=== PATIENT | male | born 1980 | race Caucasian/White ===

== ENCOUNTER 2020-11-23 22:40 | Emergency (ER) | payer OTHER | END 2020-11-24 04:20 | disposition left against medical advice (07) | LOC: ER1 22:40 | DX: Z53.21 Procedure and treatment not carried out due to patient leaving prior to being seen by health care provider (principal) ==

== ENCOUNTER 2022-02-16 15:09 | Emergency (ER) | payer OTHER ==
[2022-02-16] MEDS ORDERED: IBUPROFEN800 MG PO (18:13)
== END 2022-02-16 18:56 | disposition home or self-care (01) ==
LOC: ER1 15:09
DX: S13.4XXA Sprain of ligaments of cervical spine, initial encounter (principal); S23.3XXA Sprain of ligaments of thoracic spine, initial encounter; M54.16 Radiculopathy, lumbar region; V49.50XA Passenger injured in collision with unspecified motor vehicles in traffic accident, initial encounter; Y92.410 Unspecified street and highway as the place of occurrence of the external cause
CPT/HCPCS: 70450; 72125; 72128; 72131; 99284

== ENCOUNTER 2022-03-01 16:31 | Inpatient (IN) | payer MEDICAID ==
[~2022-03-01] VITALS: Ht 177.8 cm; Wt 71.2 kg
[~2022-03-01 16:31] MED LIST: IBUPROFEN800 MG PO
[2022-03-01 16:47] LABS: HEMOGLOBIN 11.9 gm/dl (14.0-17.5); RED BLOOD COUNT 4.31 M/UL (4.20-5.50)
[2022-03-01 17:10] LABS: BUN/CREATININE RATIO 13 (0-10)
[2022-03-01 22:36] LABS: BUN/CREATININE RATIO 14 (0-10)
[2022-03-02 05:23] LABS: HEMOGLOBIN 11.3 gm/dl (14.0-17.5); RED BLOOD COUNT 4.06 M/UL (4.20-5.50); WHITE BLOOD COUNT 5.9 K/UL (4.5-11.0)
[2022-03-02 06:24] LABS: BUN/CREATININE RATIO 12 (0-10)
[2022-03-02] MEDS ORDERED: WELLBUTRIN XL150 MG PO (11:29)
[2022-03-02] MEDS ORDERED: BUPRENORPHIN-N1 EACH PO (11:29)
[2022-03-03 04:51] LABS: HEMOGLOBIN 10.8 gm/dl (14.0-17.5); RED BLOOD COUNT 3.94 M/UL (4.20-5.50); WHITE BLOOD COUNT 4.8 K/UL (4.5-11.0)
[2022-03-03 06:12] LABS: BUN/CREATININE RATIO 11 (0-10)
[2022-03-04 06:57] LABS: BUN/CREATININE RATIO 8 (0-10)
== END 2022-03-04 13:37 | disposition home or self-care (01) | DRG 917 ==
LOC: ER1 16:31 → CCU 19:29 → CDU 19:29 → CCU 21:03
PROVIDERS: Emergency Medicine; Family Medicine; Internal Medicine Critical Care Medicine; ADMIT Internal Medicine Infectious Disease
PROC: 0BH17EZ Insertion of Endotracheal Airway into Trachea, Via Natural or Artificial Opening (ICD-10-PCS; principal; 2022-03-01)
PROC: 5A1945Z Respiratory Ventilation, 24-96 Consecutive Hours (ICD-10-PCS; 2022-03-01)
DX: T43.621A Poisoning by amphetamines, accidental (unintentional), initial encounter (principal); G92.8 Other toxic encephalopathy; J96.01 Acute respiratory failure with hypoxia; M62.82 Rhabdomyolysis; F11.20 Opioid dependence, uncomplicated; E87.2 Acidosis; Z99.11 Dependence on respirator [ventilator] status; E87.6 Hypokalemia; F19.10 Other psychoactive substance abuse, uncomplicated
CPT/HCPCS: 31500; 36415; 36600; 51702; 70450; 71045; 80048; 80053; 80307; 81001; 82550; 82553; 82803; 83605; 83735; 84100; 84484; 85025; 87040; 87081; 87086; 94002; 94003; 94760; 96365; 96366; 96368; 99285; C9113; G0480; J0360; J1200; J1335; J1630; J1650; J2250; J2543; J2704; J3370; J7030